=== PATIENT | female | born 2000 | race African-American/Black ===

== ENCOUNTER 2020-12-29 05:59 | Inpatient (IN) ==
[~2020-12-29 05:59] MED LIST: LACTATED RINGERS 1,000 ML IV SCH
[2020-12-29] MEDS ORDERED: ceFAZolin 1,000 MG in SYRINGE 1 EACH IV ONE (06:00)
[2020-12-29] MEDS ORDERED: ONDANSETRON 4 MG/2 ML VIAL ONE ×2 (06:45→07:26)
[2020-12-29] MEDS ORDERED: fentaNYL 100 MCG/2 ML VIAL ONE ×2 (06:45→08:25)
[2020-12-29] MEDS ORDERED: propofoL 200 MG/20 ML VIAL IV ONE ×2 (06:45→07:26)
[2020-12-29] MEDS ORDERED: ROCURONIUM 50 MG/5 ML VIAL IV ONE (06:45)
[2020-12-29] MEDS ORDERED: MIDAZOLAM 2 MG/2 ML VIAL ONE (06:45)
[2020-12-29] MEDS ORDERED: LIDOCAINE 2% 5 ML VIAL ONE (06:45)
[2020-12-29] MEDS ORDERED: ACETAMINOPHEN 1,000 MG/100 ML VIAL IV ONE (07:26)
[2020-12-29] MEDS ORDERED: TISSUE ADHESIVE 1 EACH APPLICATOR TOP ONE (08:15)
[2020-12-29] MEDS ORDERED: NEOSTIGMINE 10 MG/10 ML VIAL ONE (08:18)
[2020-12-29] MEDS ORDERED: GLYCOPYRROLATE 0.4 MG/2 ML VIAL ONE (08:18)
[2020-12-29] MEDS ORDERED: KETOROLAC 30 MG/1 ML VIAL ONE (08:19)
[2020-12-29] MEDS ORDERED: ALBUTEROL/IPRATROPIUM 3 ML NEB RESP TX PRN (08:28)
[2020-12-29] MEDS ORDERED: ONDANSETRON 4 MG/2 ML VIAL IV PRN ×3 (08:28→08:58)
[2020-12-29] MEDS ORDERED: ACETAMINOPHEN 325 MG TABLET PO PRN ×2 (08:28)
[2020-12-29] MEDS ORDERED: KETOROLAC 15 MG/1 ML VIAL IV PRN (08:28)
[2020-12-29] MEDS ORDERED: BISACODYL 5 MG TABLET PO PRN (08:28)
[2020-12-29] MEDS ORDERED: HYDROmorphone 2 MG/1 ML VIAL IV PRN ×3 (08:28)
[2020-12-29] MEDS ORDERED: ALBUTEROL 2.5 MG/3 ML NEB RESP TX PRN (08:30)
[2020-12-29] MEDS ORDERED: LACTATED RINGERS 1,000 ML IV SCH (08:30)
[2020-12-29] MEDS ORDERED: PANTOPRAZOLE 40 MG TABLET PO SCH ×2 (09:00)
[2020-12-29] MEDS ORDERED: amLODIPine 5 MG TABLET PO SCH (09:00)
[2020-12-29] MEDS: HYDROmorphone 2 MG/1 ML VIAL IV PRN ×4 (09:00→09:15)
[2020-12-29] MEDS ORDERED: SEVOFLURANE 1 UNIT/15 MINUTE INH ONE (09:30)
[2020-12-29] MEDS: ceFAZolin 2,000 MG in PREMIX 1 EACH IV SCH ×2 (15:15→22:22)
[2020-12-30 05:48] LABS: Basophils % 0.3 % (0.0-0.8); Eosinophils # 0.1 10*3/uL (0.0-0.87); Eosinophils % 2.3 % (0.00-10.9); Hematocrit 38.8 VOL% (35.7-47.0); Hemoglobin 12.8 GM/DL (12.0-16.0); Lymphocytes # 1.6 10*3/uL (1.4-4.0); Lymphocytes % 45.7 % (21.3-54.2); Mean Corpuscular Volume 73.2 FL (87-102); Mean Platelet Volume 9.5 FL (9.6-12.0); Neutrophils % 41.7 % (38.7-73.9); Platelet Count 316 T/CUMM (130-400); Red Cell Distribution Width 14.4 % (9.3-17.3); White Blood Count 3.4 T/CUMM (4-12)
[2020-12-30 06:01] LABS: PT Patient Result 10.9 SECS (9.8-11.9)
[2020-12-30 06:14] LABS: Albumin 3.2 G/DL (3.4-5.0); Bilirubin,Direct 0.78 MG/DL (0.0-0.20); Bilirubin,Indirect 1.1 MG/DL (0.0-1.0); Bilirubin,Total 1.9 MG/DL (0.2-1.0); Total Protein 6.4 G/DL (6.4-8.9)
[2020-12-30 06:15] LABS: Albumin 3.3 G/DL (3.4-5.0); Bilirubin,Total 2.4 MG/DL (0.2-1.0); Calcium 8.9 MG/DL (8.5-10.1); Potassium 3.8 MMOL/L (3.5-5.1); Total Protein 6.8 G/DL (6.4-8.9)
[2020-12-30] MEDS ORDERED: LACTATED RINGERS 1,000 ML IV SCH (08:00)
[2020-12-30] MEDS ORDERED: INDOMETHACIN SUPP 50 MG SUPP RECTAL ONE (08:00)
[2020-12-30] MEDS ORDERED: MIDAZOLAM 2 MG/2 ML VIAL ONE (09:36)
[2020-12-30] MEDS ORDERED: fentaNYL 100 MCG/2 ML VIAL ONE (09:36)
[2020-12-30] MEDS ORDERED: SUCCINYLCHOLINE 200 MG/10 ML VIAL ONE (10:06)
[2020-12-30] MEDS ORDERED: propofoL 200 MG/20 ML VIAL IV ONE (10:06)
[2020-12-30] MEDS ORDERED: SEVOFLURANE 1 UNIT/15 MINUTE INH ONE ×4 (10:06→10:27)
[2020-12-30] MEDS ORDERED: ROCURONIUM 50 MG/5 ML VIAL IV ONE (10:06)
[2020-12-30] MEDS ORDERED: LIDOCAINE 2% 5 ML VIAL ONE (10:06)
[2020-12-30] MEDS ORDERED: ONDANSETRON 4 MG/2 ML VIAL ONE (10:06)
[2020-12-30] MEDS ORDERED: GLYCOPYRROLATE 0.4 MG/2 ML VIAL ONE (10:27)
[2020-12-30] MEDS ORDERED: NEOSTIGMINE 10 MG/10 ML VIAL ONE (10:27)
[2020-12-30 18:19] VITALS: BP 140/69
== END 2020-12-30 16:40 | disposition home or self-care (01) | DRG 263 ==
LOC: N.OR 05:59 → N.SDSINP 06:01 → N.OB 11:24
PROVIDERS: ADMIT Student in an Organized Health Care Education/Training Program; ATTEND Student in an Organized Health Care Education/Training Program
PROC: LAPCHOL (2020-12-29 07:05)
PROC: ERCPWSP (ICD-10-PCS; 2020-12-30 08:05)